=== PATIENT | male | born 1970 | race African-American/Black ===

== ENCOUNTER 2016-12-09 18:50 | Emergency (ER) | payer SELFPAY ==
[~2016-12-09] VITALS: Ht 193 cm; Wt 87.0 kg
[2016-12-09] MEDS ORDERED: KETOROLAC 30MG/ML VIAL IM ONE (21:15)
[2016-12-09] MEDS ORDERED: KETOROLAC 30MG/ML VIAL IV ONE (21:15)
[2016-12-09] MEDS ORDERED: KETOROLAC 60MG/2ML VIAL IM ONE (21:45)
[2016-12-09 21:54] VITALS: BP 182/112
== END 2016-12-09 22:56 | disposition home or self-care (01) ==
LOC: ER 18:50
DX: G43.909 Migraine, unspecified, not intractable, without status migrainosus (principal); I10 Essential (primary) hypertension; F17.210 Nicotine dependence, cigarettes, uncomplicated
CPT/HCPCS: 96372; 99283; J1885; Z7610

== ENCOUNTER 2017-08-31 13:23 | Emergency (ER) | payer OTHER ==
[~2017-08-31] VITALS: Ht 193 cm; Wt 79.0 kg
[2017-08-31] MEDS ORDERED: SUMATRIPTAN SUCCINATE 6MG/0.5ML VIAL SUBCUT ONE (15:30)
[2017-08-31] MEDS ORDERED: NIFEDIPINE XL 60MG TAB PO ONE (15:30)
[2017-08-31] MEDS ORDERED: DIPHENHYDRAMINE 50MG/ML VIAL IV ONE (19:15)
[2017-08-31] MEDS ORDERED: METOCLOPRAMIDE HCL 10MG/2ML VIAL IV ONE (19:15)
[2017-08-31] MEDS ORDERED: KETOROLAC 30MG/ML VIAL IV ONE (19:15)
[2017-08-31] MEDS ORDERED: SODIUM CHLORIDE 0.9% 1,000 ML IV ONE (19:15)
[2017-08-31] MEDS ORDERED: CLONIDINE 0.2MG TABLET PO ONE (19:15)
[2017-08-31 22:37] VITALS: BP 187/117
== END 2017-08-31 22:37 | disposition home or self-care (01) ==
LOC: ER 15:27
DX: G43.909 Migraine, unspecified, not intractable, without status migrainosus (principal); I10 Essential (primary) hypertension; F17.200 Nicotine dependence, unspecified, uncomplicated
CPT/HCPCS: 96374; 96375; 99284; J1200; J1885; J7030; Z7610; J3030

== ENCOUNTER 2017-09-02 18:37 | Emergency (ER) | payer OTHER ==
[~2017-09-02] VITALS: Ht 193 cm; Wt 82.0 kg
[2017-09-02] MEDS ORDERED: KETOROLAC 30MG/ML VIAL IM ONE (21:00)
[2017-09-02] MEDS ORDERED: METOCLOPRAMIDE HCL 10MG TABLET PO ONE (21:00)
[2017-09-02] MEDS ORDERED: DEXAMETHASONE 10 MG/ML VIAL IM ONE (21:00)
[2017-09-02] MEDS ORDERED: SUMATRIPTAN SUCCINATE 6MG/0.5ML VIAL SUBCUT ONE (21:00)
[2017-09-02 21:16] VITALS: BP 126/95
== END 2017-09-02 21:18 | disposition home or self-care (01) ==
LOC: ER 18:37
DX: G43.909 Migraine, unspecified, not intractable, without status migrainosus (principal); I10 Essential (primary) hypertension
CPT/HCPCS: 96372; 99284; J1100; J1885; J3030; J8597

== ENCOUNTER 2017-10-14 20:37 | Emergency (ER) | payer OTHER ==
[~2017-10-14] VITALS: Ht 193 cm; Wt 84.0 kg
[2017-10-14] MEDS ORDERED: METOCLOPRAMIDE HCL 5MG TABLET PO ONE (22:45)
[2017-10-14] MEDS ORDERED: KETOROLAC 60MG/2ML VIAL IM ONE (22:45)
[2017-10-14 23:45] VITALS: BP 128/64
== END 2017-10-16 12:29 | disposition home or self-care (01) ==
LOC: ER 20:51
DX: R51 Headache (principal); I10 Essential (primary) hypertension
CPT/HCPCS: 96372; 99283; J1885; J8597

== ENCOUNTER 2017-12-03 13:51 | Emergency (ER) | payer OTHER ==
[~2017-12-03] VITALS: Ht 193 cm; Wt 77.0 kg
[2017-12-03] MEDS ORDERED: IBUPROFEN 800MG TABLET PO ONE (15:15)
[2017-12-03 15:47] VITALS: BP 144/98
== END 2017-12-03 16:49 | disposition home or self-care (01) ==
LOC: ER 14:13
DX: S80.02XA Contusion of left knee, initial encounter (principal); F17.200 Nicotine dependence, unspecified, uncomplicated; I10 Essential (primary) hypertension; W19.XXXA Unspecified fall, initial encounter; Y93.01 Activity, walking, marching and hiking; Y92.89 Other specified places as the place of occurrence of the external cause; Y99.8 Other external cause status
CPT/HCPCS: 73562; 99284; L1830; Z7610

== ENCOUNTER 2018-01-17 07:08 | Emergency (ER) | payer OTHER ==
[~2018-01-17] VITALS: Ht 193 cm; Wt 73.9 kg
[2018-01-17] MEDS ORDERED: KETOROLAC 30MG/ML VIAL IV STA (08:17)
[2018-01-17] MEDS ORDERED: SODIUM CHLORIDE 0.9% 1,000 ML IV ONE (08:17)
[2018-01-17] MEDS ORDERED: METOCLOPRAMIDE HCL 10MG/2ML VIAL IV ONE (08:30)
[2018-01-17] MEDS ORDERED: SUMATRIPTAN SUCCINATE 25MG TABLET PO ONE (08:30)
[2018-01-17 09:08] LABS: CLARITY URINE CLEAR (CLEAR); COLOR URINE YELLOW (YELLOW); KETONES URINE NEGATIVE (NEGATIVE); LEUKOCYTE ESTERASE URINE 2+ (NEGATIVE); NITRITE URINE NEGATIVE (NEGATIVE); OCCULT BLOOD URINE 2+ (NEGATIVE); PROTEIN URINE NEGATIVE (NEGATIVE); SPECIFIC GRAVITY URINE 1.016 (1.005-1.030)
[2018-01-17 10:03] VITALS: BP 138/90
== END 2018-01-17 10:30 | disposition home or self-care (01) ==
LOC: ER 07:57
DX: G43.909 Migraine, unspecified, not intractable, without status migrainosus (principal); N39.0 Urinary tract infection, site not specified; I10 Essential (primary) hypertension; F17.200 Nicotine dependence, unspecified, uncomplicated
CPT/HCPCS: 81003; 87077; 87086; 87186; 96374; 96375; 99284; J1885; J2765; J7030; Z7610

== ENCOUNTER 2018-02-16 07:44 | Emergency (ER) | payer OTHER ==
[~2018-02-16] VITALS: Ht 190.5 cm; Wt 105.0 kg
[2018-02-16] MEDS ORDERED: ONDANSETRON HCL 4MG/2ML VIAL IV STA (08:18)
[2018-02-16] MEDS ORDERED: MORPHINE SULFATE 4 MG/ML CPJ (NOT FOR IM USE) IV STA (08:18)
[2018-02-16] MEDS ORDERED: SODIUM CHLORIDE 0.9% 1,000 ML IV ONE (08:18)
[2018-02-16] MEDS ORDERED: HYDRALAZINE 20MG/ML VIAL IV ONE (08:30)
[2018-02-16 09:06] LABS: BASOPHILS % 0.3 % (0.0-2.0); EOSINOPHILS % 0.4 % (0.0-5.0); HEMATOCRIT. 39.8 % (42.0-52.0); HEMOGLOBIN. 13.1 g/dL (14.0-18.0); LYMPHOCYTES % 13.3 % (20.0-50.0); MEAN CORPUSCULAR HEMOGLOBIN 31.4 pg (28.0-32.0); MEAN CORPUSCULAR VOLUME 95.8 fL (80.0-94.0); MEAN PLATELET VOLUME 9.1 fl (7.4-10.4); MONOCYTES % 6.2 % (2.0-8.0); NEUTROPHILS % 79.8 % (40.0-76.0); PLATELET 210 x1000/uL (130-400); RED BLOOD CELL COUNT 4.16 mill/uL (4.7-6.1); RED CELL DISTRIBUTION WIDTH 12.9 % (11.6-14.6)
[2018-02-16 09:10] LABS: CHLORIDE 108 mEq/L (98-107)
[2018-02-16 09:14] LABS: CLARITY URINE CLEAR (CLEAR); COLOR URINE YELLOW (YELLOW); KETONES URINE NEGATIVE (NEGATIVE); LEUKOCYTE ESTERASE URINE 1+ (NEGATIVE); NITRITE URINE NEGATIVE (NEGATIVE); OCCULT BLOOD URINE 2+ (NEGATIVE); PH URINE 5.5 (4.5-8.0); PROTEIN URINE 2+ (NEGATIVE); SPECIFIC GRAVITY URINE 1.024 (1.005-1.030)
[2018-02-16] MEDS ORDERED: AZITHROMYCIN 500 MG TABLET PO ONE (10:45)
[2018-02-16] MEDS ORDERED: CEFTRIAXONE 1 G PREMIX 50 ML IV ONE (10:45)
[2018-02-16] MEDS ORDERED: AZITHROMYCIN 500 MG TABLET PO SCH (10:45)
[2018-02-16 11:06] VITALS: BP 159/97
== END 2018-02-16 11:10 | disposition home or self-care (01) ==
LOC: ER 08:00
DX: N45.1 Epididymitis (principal); N39.0 Urinary tract infection, site not specified; I10 Essential (primary) hypertension; F17.200 Nicotine dependence, unspecified, uncomplicated; G43.909 Migraine, unspecified, not intractable, without status migrainosus
CPT/HCPCS: 36415; 74176; 76870; 80053; 81003; 83690; 85025; 87077; 87086; 87186; 93976; 96374; 96375; 99285; J0360; J0696; J2270; J2405; J7030; Z7610

== ENCOUNTER 2018-05-12 10:56 | Emergency (ER) | payer OTHER ==
[~2018-05-12] VITALS: Ht 190.5 cm; Wt 76.0 kg
[2018-05-12 11:20] VITALS: BP 162/107
== END 2018-05-12 15:38 | disposition left against medical advice (07) ==
LOC: ER 10:56
DX: G43.909 Migraine, unspecified, not intractable, without status migrainosus (principal); Z53.21 Procedure and treatment not carried out due to patient leaving prior to being seen by health care provider

== ENCOUNTER 2018-05-20 21:45 | Emergency (ER) | payer OTHER ==
[~2018-05-20] VITALS: Ht 189.2 cm; Wt 79.5 kg
[2018-05-21] MEDS ORDERED: KETOROLAC 30MG/ML VIAL IV ONE
[2018-05-21] MEDS ORDERED: PROCHLORPERAZINE MALEATE 10MG TABLET PO ONE
[2018-05-21] MEDS ORDERED: DIPHENHYDRAMINE 25MG CAPSULE PO ONE
[2018-05-21 03:03] VITALS: BP 174/114
== END 2018-05-21 03:12 | disposition home or self-care (01) ==
LOC: ER 21:45
DX: G43.909 Migraine, unspecified, not intractable, without status migrainosus (principal); I10 Essential (primary) hypertension; F17.200 Nicotine dependence, unspecified, uncomplicated
CPT/HCPCS: 96374; 99284; J1885; Q0163; Q0164